=== PATIENT | female | born 1975 | race Caucasian/White ===

== ENCOUNTER 2017-11-20 10:23 | Emergency (ER) | payer OTHER ==
[2017-11-20 10:42] VITALS: BP 140/95
[2017-11-20] MEDS ORDERED: Ondansetron 4 MG/2 ML SDV IVPUSH ONE (11:37)
[2017-11-20] MEDS ORDERED: Dicyclomine 20 MG/2 ML SDV IM ONE (11:37)
[2017-11-20] MEDS ORDERED: Sodium Chloride 0.9% 1,000 ML IV ONE (11:37)
--- NOTE | 2017-11-20 11:38 | EDM.PDOC ---
ED HPI GENERAL MEDICAL PROBLEM - General Chief Complaint: Abdominal Pain Stated Complaint: CONSTIPATION AND ABD PAIN Time Seen by Provider: 11/20/17 11:18 Source of Information: Reports: Patient History Limitations: Reports: No Limitations - History of Present Illness INITIAL COMMENTS - FREE TEXT/NARRATIVE: 42-year-old female presents for evaluation and treatment of abdominal pain and constipation. Patient reports she has not had a bowel movement in the last 2 and half weeks. She reports associated symptoms of abdominal discomfort and nausea. Patient where she struggles with constipation since age of 4. She states she typically has a 1 bowel movement about once a week. She's never been worked up for this before. She has never had a colonoscopy. She states that she currently has associated symptoms of increased belching, abdominal pain and pressure across her lower abdomen and nausea. No vomiting. She states that she is urged to go to the bathroom but has been unable to go. She is not passing as much gas as normal. She tried multiple enemas, magnesium citrate, senna and MiraLAX. She is also on psyllium husk on a daily to keep her regular. Patient reports that 2 and half weeks ago she had blood in her stool. She has not had any of this since. Patient reports previous abdominal surgeries and exploratory lap, C-sections, uterine ablation a laparoscopic cholecystectomy Primary care providers Gloria Castaneda. Abdominal Pain Score (Numeric/FACES): 5 - Related Data Allergies Allergy/AdvReac Type Severity Reaction Status Date / Time erythromycin base Allergy Anaphylactic Verified 11/20/17 10:36 Shock naproxen [From Aleve] Allergy Anaphylactic Verified 11/20/17 10:36 Shock Home Meds: Home Meds Albuterol Sulfate [Proair Hfa] 1 puff INH ASDIRECTED PRN 06/01/16 [History] KCl/Na Sulf,Bicarb,Cl/PEG 3351 [GoLytely] 4 oz PO BID #1 bottle 11/20/17 [Rx] Ondansetron [Zofran ODT] 4 mg PO Q6H PRN #20 tab.dis 11/20/17 [Rx] Psyllium Husk [Reguloid] 1 cap PO DAILY 11/20/17 [History] Past Medical History Respiratory History: Reports: Asthma Gastrointestinal History: Reports: Chronic Constipation 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 uterine ablation Neurological History: Reports: Other (See Below) Other Neuro History: chairi type one malformation - Past Surgical History GI Surgical History: Reports: Cholecystectomy Social & Family History - Tobacco Use Smoking Status *Q: Never Smoker - Caffeine Use Caffeine Use: Reports: Coffee - Recreational Drug Use Recreational Drug Use: No ED ROS GENERAL - Review of Systems Review Of Systems: See Below Constitutional: Denies: Fever, Chills GI/Abdominal: Reports: Abdominal Pain (lower abdomen), Constipation, Hematochezia (x1 2.5 wks ago), Nausea, Other. Denies: Flatus, Vomiting : Reports: No Symptoms ED EXAM, GI/ABD - Physical Exam Exam: See Below Exam Limited By: No Limitations General Appearance: Alert, WD/WN, No Apparent Distress Ears: Normal External Exam Nose: Normal Inspection Throat/Mouth: Normal Inspection, Normal Lips, Normal Voice, No Airway Compromise Respiratory/Chest: No Respiratory Distress, Lungs Clear, Normal Breath Sounds Cardiovascular: Normal Peripheral Pulses, Regular Rate, Rhythm, No Murmur GI/Abdominal Exam: Soft, Tender (minor tenderness to palpation to the lower abdomen ), Abnormal Bowel Sounds (hypoactive bowel sounds) Neurological: Alert, Oriented, Normal Cognition Psychiatric: Normal Affect, Normal Mood Skin Exam: Warm, Dry, Normal Color Course - Vital Signs Last Recorded V/S: Last Vital Signs Temp 37.6 C 11/20/17 10:36 Pulse 84 11/20/17 10:36 Resp 18 11/20/17 10:36 BP 140/95 H 11/20/17 10:36 Pulse Ox 100 11/20/17 10:36 - Orders/Labs/Meds Labs: Laboratory Tests 11/20/17 11/20/17 11/20/17 Range/Units 12:05 12:05 12:40 WBC 5.72 (3.98-10.04) K/mm3 RBC 4.92 (3.98-5.22) M/mm3 Hgb 15.1 (11.2-15.7) gm/L Hct 44.9 (34.1-44.9) % MCV 91.3 (79.4-94.8) fl MCH 30.7 (25.6-32.2) pg MCHC 33.6 (32.2-35.5) g/dl RDW Std Deviation 44.0 (36.4-46.3) fL Plt Count 288 (182-369) K/mm3 MPV 10.2 (9.4-12.3) fl Neutrophils % (Manual) 59 (40-60) % Band Neutrophils % 1 (0-10) % Lymphocytes % (Manual) 38 (20-40) % Atypical Lymphs % 0 % Monocytes % (Manual) 1 L (2-10) % Eosinophils % (Manual) 1 (0.7-5.8) % Basophils % (Manual) 0 L (0.1-1.2) Platelet Estimate Adequate RBC Morph Comment Normal Sodium 139 (136-145) mEq/L Potassium 3.7 (3.5-5.1) mEq/L Chloride 103 (98-107) mEq/L Carbon Dioxide 25 (21-32) mEq/L Anion Gap 14.7 (5-15) BUN 13 (7-18) mg/dL Creatinine 0.9 (0.55-1.02) mg/dL Est Cr Clr Drug Dosing 77.79 mL/min Estimated GFR (MDRD) > 60 (>60) mL/min BUN/Creatinine Ratio 14.4 (14-18) Glucose 96 (74-106) mg/dL Calcium 9.6 (8.5-10.1) mg/dL Total Bilirubin 0.4 (0.2-1.0) mg/dL AST 18 (15-37) U/L ALT 29 (14-59) U/L Alkaline Phosphatase 75 (46-116) U/L C-Reactive Protein 0.2 (<1.0) mg/dL Total Protein 8.6 H (6.4-8.2) g/dl Albumin 4.5 (3.4-5.0) g/dl Globulin 4.1 gm/dL Albumin/Globulin Ratio 1.1 (1-2) Urine Color Yellow (Yellow) Urine Appearance Clear (Clear) Urine pH 6.5 (5.0-8.0) Ur Specific [place] 1.010 (1.005-1.030) Urine Protein Negative (Negative) Urine Glucose (UA) Negative (Negative) Urine Ketones Negative (Negative) Urine Occult Blood Negative (Negative) Urine Nitrite Negative (Negative) Urine Bilirubin Negative (Negative) Urine Urobilinogen 0.2 (0.2-1.0) Ur Leukocyte Esterase Negative (Negative) Urine RBC Not seen (0-5) /hpf Urine WBC 0-5 (0-5) /hpf Ur Epithelial Cells 0-5 (0-5) /hpf Urine Bacteria Few (FEW) /hpf Urine Mucus Not seen (FEW) /hpf Meds: Medications Discontinued Medications Generic Name Dose Route Start Last Admin Trade Name Freq PRN Reason Stop Dose Admin Diatrizoate Meglum/Diatrizoate Sod 90 ml 11/20/17 12:29 11/20/17 12:44 Gastrografin 37% PO 11/20/17 12:30 90 ml ONETIME ONE Administration Dicyclomine HCl 20 mg 11/20/17 11:37 11/20/17 12:25 Bentyl IM 11/20/17 11:38 20 mg ONETIME ONE Administration Sodium Chloride 1,000 mls @ 999 mls/hr 11/20/17 11:37 11/20/17 12:22 Normal Saline IV 11/20/17 12:37 999 mls/hr ONETIME ONE Administration Iopamidol 100 ml 11/20/17 12:29 11/20/17 12:44 Isovue-300 (61%) IVPUSH 11/20/17 12:30 100 ml ONETIME ONE Administration Metoclopramide HCl 5 mg 11/20/17 14:14 11/20/17 15:29 Reglan IVPUSH 11/20/17 14:15 5 mg ONETIME ONE Administration Ondansetron HCl 4 mg 11/20/17 11:37 11/20/17 12:22 Zofran IVPUSH 11/20/17 11:38 4 mg ONETIME ONE Administration Sodium Chloride 10 ml 11/20/17 11:34 11/20/17 12:44 Saline Flush FLUSH 10 ml ASDIRECTED PRN Administration Keep Vein Open Sodium Chloride 10 ml 11/20/17 12:29 11/20/17 15:31 Saline Flush FLUSH 11/20/17 12:30 10 ml ONETIME ONE Administration - Radiology Interpretation Free Text/Narrative:: CT abdomen and pelvis Technique: Multiple axial sections were obtained from above the dome of the diaphragm inferiorly through the pubic symphysis. Intravenous and oral contrast was utilized. Delayed were obtained through the bladder. Comparison: No prior abdominal imaging is available. Findings: Visualized lung bases shows nothing acute. Liver shows no focal parenchymal abnormality. Spleen appears within normal limits. Adrenal glands contain no nodules. Surgical clips are seen from prior cholecystectomy. Kidneys show symmetric contrast enhancement without hydronephrosis or mass. Pancreas is within normal limits. Aorta shows no aneurysmal dilatation. No retroperitoneal adenopathy or mesenteric abnormalities are seen. No pelvic mass or adenopathy is seen. Mild amount of free fluid is seen within the cul-de -sac. No inflammatory change is seen. Mild increased stool is noted throughout the colon. Appendix is felt to be seen which appears normal. Shows contrast within the bladder. Bone window settings were reviewed which appears within normal limits for the patient's age. Impression: 1. Mild increased stool throughout the colon. 2. Mild amount of free fluid within the cul-de-sac most likely physiologic. 3. No additional abnormality is seen on CT study of the abdomen and pelvis. - Re-Assessments/Exams Free Text/Narrative Re-Assessment/Exam: 11/20/17 16:05 I reviewed the labs and imaging with the patient. Fleets enema given without any success. Soap suds enema given without any success. At this point I will discharge her home. Patient would like to go home at this time. Will discharge home with golytely and instructions for enemas every other day. Encouraged follow-up with PCP, she may require surgical intervention if the constipation worsen but is not indicated today. Discharge instructions as documented. Departure - Departure Time of Disposition: 16:08 Disposition: Home, Self-Care 01 Condition: Fair Clinical Impression: Constipation - Discharge Information Prescriptions: KCl/Na Sulf,Bicarb,Cl/PEG 3351 [GoLytely] 4 oz PO BID #1 bottle Ondansetron [Zofran ODT] 4 mg PO Q6H PRN #20 tab.dis PRN Reason: Nausea Instructions: Constipation, Adult, [id number] Referrals: Yanni Castaneda, [employer] [Primary Care Provider] - Forms: ED Department Discharge Additional Instructions: make sure you are drinking plenty of fluids. Recommend starting a probiotic, these are available [id number]. Zofran 1 tab sublingual every 6 hours as needed for nausea. [id number] Tylenol or Motrin as needed for pain relief Enemas every other day, next one on Monday. GoLYTELY 4 ounces twice a day for 7 days until stool passes. Follow-up with your primary care provider this week as planned. Please return to the ER if your symptoms change or worsen.
[2017-11-20] MEDS: Sodium Chloride 0.9% 10 ML Syringe FLUSH PRN ×2 (12:23→12:44)
[2017-11-20] MEDS ORDERED: Diatrizoate Meglumine/Diatrizoate Sodium 37% 120 ML Bottle PO ONE (12:29)
[2017-11-20] MEDS ORDERED: Iopamidol 612 MG/ML 100 ML Bottle IVPUSH ONE (12:29)
[2017-11-20] MEDS ORDERED: Sodium Chloride 0.9% 10 ML Syringe FLUSH ONE (12:29)
--- NOTE | 2017-11-20 13:16 | CT ---
CT abdomen and pelvis Technique: Multiple axial sections were obtained from above the dome of the diaphragm inferiorly through the pubic symphysis. Intravenous and oral contrast was utilized. Delayed were obtained through the bladder. Comparison: No prior abdominal imaging is available. Findings: Visualized lung bases shows nothing acute. Liver shows no focal parenchymal abnormality. Spleen appears within normal limits. Adrenal glands contain no nodules. Surgical clips are seen from prior cholecystectomy. Kidneys show symmetric contrast enhancement without hydronephrosis or mass. Pancreas is within normal limits. Aorta shows no aneurysmal dilatation. No retroperitoneal adenopathy or mesenteric abnormalities are seen. No pelvic mass or adenopathy is seen. Mild amount of free fluid is seen within the cul-de-sac. No inflammatory change is seen. Mild increased stool is noted throughout the colon. Appendix is felt to be seen which appears normal. Shows contrast within the bladder. Bone window settings were reviewed which appears within normal limits for the patient's age. Impression: 1. Mild increased stool throughout the colon. 2. Mild amount of free fluid within the cul-de-sac most likely physiologic. 3. No additional abnormality is seen on CT study of the abdomen and pelvis. Diagnostic code #2
[2017-11-20] MEDS ORDERED: Metoclopramide 10 MG/2 ML SDV IVPUSH ONE (14:14)
== END 2017-11-20 16:18 | disposition home or self-care (01) ==
LOC: JD.ED 10:23
DX: K59.00 Constipation, unspecified (principal); Z88.1 Allergy status to other antibiotic agents; Z88.8 Allergy status to other drugs, medicaments and biological substances
CPT/HCPCS: 36415; 74177; 80053; 81001; 85007; 85027; 86140; 96361; 96372; 96374; 96375; 99284; J0500; J2405; J2765; J7040; J7050; Q9963; Q9967